=== PATIENT | female | born 1940 | race Caucasian/White ===

== ENCOUNTER 2017-01-26 23:29 | Emergency (ER) | payer MEDICARE ==
--- NOTE | 2017-01-26 23:56 | ER Document Report ---
ED Medical Screen (RME) - General Chief Complaint: Psych Problem Stated Complaint: PSYCH EVALUATION Notes: 76 year old female that comes to the ED from [facility] for chief complaint of psychiatric evaluation. Patient reportedly agitated and would not calm down, they state patient was correctly concerned about her daughter being in an accident (which EMS confirms she was). Patient denies SI or HI, states sometimes she "fears for her life" but no current complaints other than feeling "hot". She also states she is afraid she has "a baby black snake in her brain cells". PMH bipolar, EMS reports she is "not taking her meds". She has DNR paperwork. TRAVEL OUTSIDE OF THE [place] IN LAST 30 DAYS: No - Related Data Allergies/Adverse Reactions: chlorpromazine HCl [From Thorazine] Allergy (Verified 03/30/16 19:53) codeine Allergy (Verified 03/30/16 19:53) divalproex sodium [From Depakote] Allergy (Verified 03/30/16 19:53) lithium Allergy (Verified 03/30/16 19:53) Penicillins Allergy (Verified 03/30/16 19:53) prochlorperazine [From Compazine] Allergy (Verified 03/30/16 19:53) prochlorperazine edisylate [From Compazine] Allergy (Verified 03/30/16 19:53) prochlorperazine maleate [From Compazine] Allergy (Verified 03/30/16 19:53) quetiapine fumarate [From Seroquel] Allergy (Verified 03/30/16 19:53) trazodone Allergy (Verified 03/30/16 19:53) monistat Allergy (Uncoded 03/30/16 19:53) Past Medical History - Social History Chew tobacco use (# tins/day): No Frequency of alcohol use: None Drug Abuse: None - Past Medical History Cardiac Medical History: Denies: Hx Coronary Artery Disease Endocrine Medical History: Reports: Hx Hypothyroidism. Denies: Hx Diabetes Mellitus Type 1, Hx Diabetes Mellitus Type 2 Renal/ Medical History: Denies: Hx Peritoneal Dialysis GI Medical History: Reports: Hx Gastroesophageal Reflux Disease Psychiatric Medical History: Reports: Hx Bipolar Disorder, Hx Dementia - Immunizations Immunizations up to date: Yes Hx Diphtheria, Pertussis, Tetanus Vaccination: Yes Physical Exam - Vital signs Vitals: Temp Pulse Resp BP Pulse Ox 97.4 F 81 18 140/59 H 98 01/26/17 23:42 01/26/17 23:42 01/26/17 23:42 01/26/17 23:42 01/26/17 23:42 - Neurological Cognition: Other - patient is making bizarre statements, but she is fully oriented and answers all questions appropriately when asked (she focuses in well ) Orientation: AAOx4. No: Disoriented to person, Disoriented to place, Disoriented to time [employer] Coma Scale Verbal: Oriented [employer] Coma Scale Motor: Obeys Commands Speech: Normal Cranial nerves: Normal Cerebellar coordination: Normal Motor strength normal: LUE, RUE, LLE, RLE Course - Re-evaluation Re-evalutation: Patient with constant rambling, but no agitation or distress. Bizarre but actually oriented and very cooperative.No neuro deficits noted. EMS not reporting if confusion is her baseline. - Vital Signs Vital signs: Temp Pulse Resp BP Pulse Ox 97.4 F 81 18 140/59 H 98 01/26/17 23:42 01/26/17 23:42 01/26/17 23:42 01/26/17 23:42 01/26/17 23:42
--- NOTE | 2017-01-27 00:22 | ER Document Report ---
ED General - General TRAVEL OUTSIDE OF THE [place] IN LAST 30 DAYS: No <LINK JANG - Last Filed: 01/27/17 03:16> <MURTAZA CHOU - Last Filed: 01/29/17 13:42> - General Chief Complaint: Psych Problem Stated Complaint: PSYCH EVALUATION Notes: Patient is a 76-year-old female who is sent from the half-way for a psychiatric eval. She has a history of schizophrenia and bipolar. According to the note patient has not been taking her medications. Her daily medications include is a Benztropine, bupropion, and Danica-M. patient is actively having hallucinations. She tells me that there have been black snakes in her room and also she had related to have black snakes in her purse. She says they have called up inside her and she wants x-rays to determine where the snakes are. She also asked me if she could accidentally get someone's semen inside her if she was to siphon gas for one lawnmower to another. She is anxious appearing. She denies any pain. She denies any recent infections. She has no other complaints at this time. (LINK JANG) - Related Data Allergies/Adverse Reactions: chlorpromazine HCl [From Thorazine] Allergy (Verified 03/30/16 19:53) codeine Allergy (Verified 03/30/16 19:53) divalproex sodium [From Depakote] Allergy (Verified 03/30/16 19:53) lithium Allergy (Verified 03/30/16 19:53) Penicillins Allergy (Verified 03/30/16 19:53) prochlorperazine [From Compazine] Allergy (Verified 03/30/16 19:53) prochlorperazine edisylate [From Compazine] Allergy (Verified 03/30/16 19:53) prochlorperazine maleate [From Compazine] Allergy (Verified 03/30/16 19:53) quetiapine fumarate [From Seroquel] Allergy (Verified 03/30/16 19:53) trazodone Allergy (Verified 03/30/16 19:53) monistat Allergy (Uncoded 03/30/16 19:53) Home Medications: Current Home Medications Acetaminophen [Mapap] 500 mg PO Q4HP PRN 01/27/17 [History] Benztropine Mesylate [Benztropine Mesylate 0.5 mg Tablet] 0.75 mg PO BID [History] Bupropion HCl [Bupropion Xl] 150 mg PO DAILY 01/27/17 [History] Clonazepam [Klonopin] 0.25 mg PO BIDP PRN 01/27/17 [History] Loperamide HCl [Loperamide] 2 mg PO PRN PRN 01/27/17 [History] Magnesium Hydroxide [Milk of Magnesia 30 ml Udcup] 30 ml PO HSP PRN 01/27/17 [ History] Meclizine HCl [Antivert 12.5 mg Tablet] 12.5 mg PO Q8HP PRN 01/27/17 [History] Mintox 30 ml PO PRN PRN 01/27/17 [History] Multivits,Th W-Fe,Other Min [Thera-M] 1 each PO DAILY 01/27/17 [History] Neomy Sulf/Bacitra/Polymyxin B [Triple Antibiotic Ointment] 1 each TP ASDIR PRN 01/27/17 [History] Polyethylene Glycol 3350 [Miralax Powder 17 gm/Packet] 1 packet PO DAILY [History] Tramadol HCl [Ultram 50 mg Tablet] 50 mg PO HSP PRN 01/27/17 [History] Tussin Mucus-Chest 10 ml PO Q6HP PRN 01/27/17 [History] Past Medical History - Social History Smoking Status: Never Smoker Chew tobacco use (# tins/day): No Frequency of alcohol use: None Drug Abuse: None Family History: Reviewed & Not Pertinent Patient has suicidal ideation: No Patient has homicidal ideation: No - Past Medical History Cardiac Medical History: Denies: Hx Coronary Artery Disease Endocrine Medical History: Reports: Hx Hypothyroidism. Denies: Hx Diabetes Mellitus Type 1, Hx Diabetes Mellitus Type 2 Renal/ Medical History: Denies: Hx Peritoneal Dialysis GI Medical History: Reports: Hx Gastroesophageal Reflux Disease Psychiatric Medical History: Reports: Hx Bipolar Disorder, Hx Dementia - Immunizations Immunizations up to date: Yes Hx Diphtheria, Pertussis, Tetanus Vaccination: Yes <LINK JANG - Last Filed: 01/27/17 03:16> Review of Systems <LINK JANG - Last Filed: 01/27/17 03:16> <MURTAZA CHOU - Last Filed: 01/29/17 13:42> - Review of Systems Notes: My Normal Review Basic REVIEW OF SYSTEMS: CONSTITUTIONAL : Denies fever, chills, or sweats. Denies recent illness. EENT: Denies eye, ear, throat, or mouth pain or symptoms. Denies nasal or sinus congestion. CARDIOVASCULAR: Denies chest pain. RESPIRATORY: Denies cough, cold, or chest congestion. Denies shortness of breath, difficulty breathing, or wheezing. GASTROINTESTINAL: Denies abdominal pain. Denies nausea, vomiting, or diarrhea. Denies constipation. Last BM: MUSCULOSKELETAL: Denies neck or back pain or joint pain or swelling. SKIN: Denies rash or skin lesions. NEUROLOGICAL: Denies altered mental status or loss of consciousness. Denies headache. Denies weakness or paralysis or loss of use of either side. Denies problems with gait or speech. Denies sensory or motor loss. PSYCHIATRIC: Anxiety and hallucinations. ALL OTHER SYSTEMS REVIEWED AND NEGATIVE. (LINK JANG) Physical Exam <LINK JANG - Last Filed: 01/27/17 03:16> <MURTAZA CHOU - Last Filed: 01/29/17 13:42> - Vital signs Vitals: Temp Pulse Resp BP Pulse Ox 97.4 F 81 18 140/59 H 98 01/26/17 23:42 01/26/17 23:42 01/26/17 23:42 01/26/17 23:42 01/26/17 23:42 - Notes Notes: General Appearance: Well nourished, alert, cooperative, no acute distress, no obvious discomfort. Anxious appearing. Vitals: reviewed, See vital signs table. Head: no swelling or tenderness to the head Eyes: PERRL, EOMI, Conjuctiva clear Mouth: No decreasd moisture Neck: Supple, no neck tenderness, Lungs: No wheezing, No rales, No rhonci, No accessory muscle use, good air exchange bilaterally. Heart: Normal rate, Regular rythm, No murmur, no rub Abdomen: Normal BS, soft, No rigidity, No abdominal tenderness, No guarding, no rebound, no abdominal masses, no organomegaly Extremities: strength 5/5 in all extremities, good pulses in all extremities, no swelling or tenderness in the extremities, no edema. Skin: warm, dry, appropriate color, no rash Neuro: speech clear, oriented x 3, normal affect, responds appropriately to questions. (LINK JANG) Course - Laboratory Result Diagrams: 01/27/17 00:52 01/27/17 00:52 <LINK JANG - Last Filed: 01/27/17 03:16> - Laboratory Result Diagrams: 01/27/17 00:52 01/27/17 00:52 <MURTAZA CHOU - Last Filed: 01/29/17 13:42> - Re-evaluation Re-evalutation: 01/27/17 03:16 Patient start to become very agitated and continued to leave the room. She started fighting security guards. She was looking for her children because she thought she could hear their voices in the hospital. Patient cannot be reasoned with. She was given 2.5 mg of Haldol and 1 mg of Ativan IM. (LINK JANG) - Vital Signs Vital signs: Temp Pulse Resp BP Pulse Ox 97.2 F 82 14 124/70 97 01/29/17 08:00 01/29/17 08:00 01/29/17 08:00 01/29/17 08:00 01/29/17 08:00 - Laboratory Laboratory results interpreted by me: 01/27/17 01/27/17 00:52 00:52 RBC 3.57 L Hgb 11.4 L Hct 33.5 L Chloride 108 H Salicylates < 1.0 L Acetaminophen < 10 L - EKG Interpretation by Me Additional EKG results interpreted by me: 01/27/17 01:04 EKG is reviewed and interpreted by me. EKG shows normal sinus rhythm with a rate of 78 beats per minute. No ST segment elevation or depression. No ischemic T wave inversions. NM interval, QRS duration, QTC intervals are within normal range. Old EKG for comparison is from 03/25/2016. (LINK JANG) Discharge <LINK JANG - Last Filed: 01/27/17 03:16> <MURTAZA CHOU - Last Filed: 01/29/17 13:42> - Discharge Clinical Impression: Schizophrenia Qualifiers: Schizophrenia type: unspecified Qualified Code(s): F20.9 - Schizophrenia, unspecified Dementia Qualifiers: Dementia type: unspecified type Dementia behavioral disturbance: without behavioral disturbance Qualified Code(s): F03.90 - Unspecified dementia without behavioral disturbance Condition: Stable Disposition: HOME, SELF-CARE Additional Instructions: Dementia The exam shows a decrease in mental ability called dementia. Signs of dementia include a gradual loss of memory and a decreased ability to reason and solve problems. Personality changes, hostility, lack of self-care, and loss of bladder or bowel control are later signs of dementia. In these later stages, patients may become confused, lost, fearful, or agitated, even in familiar places. Alzheimer's disease is the most common type of dementia. It has no known cause or specific treatment. Other causes include alcohol and drug abuse, medication effects (especially tranquilizers and sleeping pills), strokes, head injuries, and brain tumors. Sometimes severe depression in an elderly person is mistaken for dementia, and this can be treated if recognized. A complete medical evaluation and ongoing care with a doctor is important. Most people with dementia need help or supervision with daily living. Some may be able to live independently with occasional help; others require foster care or even half-way placement. Alcohol, sedatives, and antihistamines may make the symptoms worse and should be avoided. Alzheimer's disease support groups are available in some communities and can be very valuable to the entire family. Prescription medication can ease the symptoms of Alzheimer's disease in some patients. Please arrange for medical follow-up. Return here if there is a sudden change in mental function, inability to move an arm or leg, inability to speak, fever, or any other significant change. Schizophrenia Schizophrenia is a chemical disorder that affects how the brain functions. The exact cause is unknown, but it tends to run in families. It is NOT caused by emotional trauma. Schizophrenia causes disordered thinking, including unusual beliefs and inability to "process" happenings around the patient. Patients with schizophrenia benefit greatly from medicine. These medicines are called antipsychotics. Never stop the medicine without the doctor 's approval. Counselling may help the patient deal with his disease. Schizophrenics require a very ordered environment. Stresses and sudden changes may bring out symptoms. Drugs and alcohol abuse may become problems. Contact the counsellor or crisis line if there are thoughts of suicide or of harming others, or if you become aware of unusual thoughts or beliefs FOLLOW-UP CARE: If you have been referred to a physician for follow-up care, call the physician s office for an appointment as you were instructed or within the next two days. If you experience worsening or a significant change in your symptoms, notify the physician immediately or return to the Emergency Department at any time for re-evaluation. Prescriptions: Buspirone HCl [Buspar 10 mg Tablet] 10 mg PO QHS #7 tablet Clonidine HCl [Catapres 0.1 mg Tablet] 0.1 mg PO BID #14 tablet Levetiracetam [Keppra 500 mg Tablet] 500 mg PO BID #14 tablet Referrals: KARLO COTTON MD [Primary Care Provider] - Follow up as needed
[2017-01-27 01:11] LABS: ABSOLUTE EOSINOPHILS # (AUTO) 0.4 10^3/uL (0.0-0.6); ABSOLUTE LYMPHOCYTES (AUTO) 2.6 10^3/uL (0.5-4.7); ABSOLUTE MONOCYTES (AUTO) 0.4 10^3/uL (0.1-1.4); BASOPHILS % (AUTO) 0.7 % (0-2); EOSINOPHILS % (AUTO) 5.5 % (0-6); HEMATOCRIT 33.5 % (36.0-47.0); HEMOGLOBIN 11.4 g/dL (12.0-15.5); HGB HCT DIFFERENCE 0.7; LYMPHOCYTES % (AUTO) 40.7 % (13-45); MEAN CORPUSCULAR HGB CONC 34.1 g/dL (32.0-36.0); MEAN CORPUSCULAR VOLUME 94 fl (80-97); MONOCYTES % (AUTO) 6.9 % (3-13); RED BLOOD COUNT 3.57 10^6/uL (3.72-5.28); RED CELL DISTRIBUTION WIDTH 12.4 % (11.5-14.0); SEGMENTED NEUTROPHILS % (AUTO) 46.2 % (42-78); WHITE BLOOD COUNT 6.5 10^3/uL (4.0-10.5)
[2017-01-27 01:24] LABS: ALANINE AMINOTRANSFERASE 19 U/L (9-52); ALBUMIN 3.7 g/dL (3.5-5.0); ALCOHOL < 10 mg/dL (NONE DETECTED); ALKALINE PHOSPHATASE 66 U/L (38-126); ANION GAP 13 (5-19); ASPARTATE AMINO TRANSFERASE 35 U/L (14-36); BILIRUBIN,DIRECT 0.4 mg/dL (0.0-0.4); BILIRUBIN,TOTAL 0.5 mg/dL (0.2-1.3); BLOOD UREA NITROGEN 18 mg/dL (7-20); CALCIUM 9.8 mg/dL (8.4-10.2); CARBON DIOXIDE 23 mmol/L (22-30); CHLORIDE 108 mmol/L (98-107); CREATININE RESULT 0.75 mg/dL (0.52-1.25); GLUCOSE 95 mg/dL (75-110); POTASSIUM 4.6 mmol/L (3.6-5.0); SODIUM 144.2 mmol/L (137-145); TOTAL PROTEIN 6.9 g/dL (6.3-8.2)
[2017-01-27 01:33] LABS: APPEARANCE,URINE CLEAR; BILIRUBIN,URINE NEGATIVE (NEGATIVE); GLUCOSE, URINE NEGATIVE (NEGATIVE); KETONES,URINE NEGATIVE (NEGATIVE); LEUKOCYTE ESTERASE,URINE NEGATIVE (NEGATIVE); NITRITE,URINE NEGATIVE (NEGATIVE); PROTEIN,URINE NEGATIVE (NEGATIVE); URINE SPECIFIC GRAVITY 1.006; UROBILINOGEN,URINE NEGATIVE mg/dL (<2.0)
[2017-01-27 01:49] LABS: URINE BARBITURATES SCREEN NEGATIVE; URINE METHADONE SCREEN NEGATIVE; URINE OPIATES LOW NEGATIVE; URINE PHENCYCLIDINE SCREEN NEGATIVE
[2017-01-27] MEDS ORDERED: HALOPERIDOL LACTATE INJ 5 MG/1 ML VIAL ONE (03:13)
[2017-01-27] MEDS ORDERED: LORAZEPAM INJ 2 MG/1 ML VIAL IM ONE (03:14)
[2017-01-27] MEDS ORDERED: HALOPERIDOL LACTATE INJ 5 MG/1 ML VIAL IM ONE (03:14)
[2017-01-27] MEDS ORDERED: LORAZEPAM INJ 2 MG/1 ML VIAL ONE (03:17)
--- NOTE | 2017-01-27 10:18 | EKG REPORT ---
SEVERITY:- NORMAL ECG - SINUS RHYTHM : Confirmed by: Waqar Lao MD 27-Jan-2017 10:17:34
--- NOTE | 2017-01-27 11:53 | PSYCHOLOGICAL NOTE ---
Psych Note - Psych Note Psych Note: Patient is a 76 year old female who presented last night via EMS from her prison, [facility] due to A/V H, specifically of snakes, etc. Patient is observed this morning repeatedly calling out for her daughter, and asking if her children had been discharged. Patient is reportedly diagnosed with Schizophrenia and Bipolar Disorder, as well as Dementia and has refused to take her prescribed medications. Patient additionally has numerous medication allergies, to include antipsychotics and mood stabilizers. Patient's last known doses of medications were reported as possibly the end of December. Patient this morning takes extensively about her past, even dating back to her childhood. Patient is eventually redirected to the episode yesterday, which she states EMS was called because of the snakes. She denies hallucinations. Patient states she can feel a male and female black snake on her chest, and that there is also one on the back of her brain, and in her chest and belly. Patent states she needs both her belly and head xrayed and proceeds to state she sat next to a person who was interested in obtaining seamen. Patient states she did not stop taking her medications, they were stopped by her staff at [facility]. Patient states she is concerned because of financial matters, and states she has a large inheritance she planned on building a new [facility] and relocating some of the residents from [facility] due to the poor conditions. Patient states she may or may not change her mind. Patient provides consent to speak with any family who may be located and states she has a sister in [place] and one in [place]. Patient is A and O to name and location. Mood is labile throughout her episode, but at the time of this evaluation was calm. Smiling/normal affect. Patient denies SI/HI. Patient denies A/V h; however, presents with tactile delusions. Thought processes were tangential. Conversational speech was WNL for prosody for this patient. Attention and focus were poor. Insight, judgment, and impulse control were poor. Bipolar Disorder with Psychotic Features, per history Dementia, per history
[2017-01-27] MEDS ORDERED: LEVETIRACETAM 500 MG TABLET PO SCH (12:30)
[2017-01-27] MEDS ORDERED: RISPERIDONE 0.25 MG TABLET PO SCH (15:00)
--- NOTE | 2017-01-27 15:12 | ER Document Report ---
Doctor's Note Notes: 01/27/17 15:09 Medical rounds: Chart reviewed and patient interviewed briefly. Patient appeared to be napping comfortably, awakens easily, upon questioning states she has no particular somatic complaints. Vital signs are normal. Laboratory values satisfactory. CT scan of the head has been done and is normal. Patient is alert and oriented as to person and place. She continues to be worried about "snakes in my brain cells". Psychosocial evaluation is noted and medications have been ordered per their recommendations. Patient remains medically stable.
[2017-01-27] MEDS: LEVETIRACETAM 500 MG TABLET PO SCH (17:46)
[2017-01-27] MEDS: BUSPIRONE HCL 10 MG TABLET PO SCH (22:07)
[2017-01-28] MEDS: LEVETIRACETAM 500 MG TABLET PO SCH ×2 (11:36→17:36)
[2017-01-28] MEDS ORDERED: CLONIDINE HCL 0.1 MG TABLET PO SCH (15:00)
--- NOTE | 2017-01-28 16:29 | PSYCHOLOGICAL NOTE ---
Psych Note - Psych Note Psych Note: Conducted check-in with patient who is a 76-year-old female under involuntary commitment originally petitioned by the [facility]. Patient initially was noted to have refused her medications stating she would not take the Keppra until she spoke with a doctor and also refused the Risperidone stating she has a prior history of syncopal episodes due to the medication. Patient today reports no concerns, but states she would like to see her belongings. Patient has no noted complaints at this time. Patient was noted by nursing to be talking about snakes, and also engaging in conversation will no one else was in the room. [facility] [place] states: left msg requesting return contact. Patient is alert and oriented to name and location. Mood is euthymic and cooperative, with congruent affect. Patient denies suicidal/homicidal ideations , intent, plan, means. Patient denies A/VH; delusions not noted. Thought processes were disorganized. Conversational speech was low for rate, tone, and prosody. Attention and focus were poor. Insight, judgment, impulse control were poor. Bipolar Disorder with Psychotic Features, per history Dementia, per history Patient is recommended to continue under IVC for further observation and stabilization via medication administration.
[2017-01-28] MEDS ORDERED: CLONIDINE HCL 0.1 MG TABLET ONE (16:46)
[2017-01-28] MEDS: CLONIDINE HCL 0.1 MG TABLET PO SCH (16:53)
--- NOTE | 2017-01-28 21:32 | ER Document Report ---
Doctor's Note Notes: 01/28/17 21:32 Patient seen and evaluated multiple times throughout the day had to be medicated earlier and was having episodes where she would sleep for a couple hours wake up and begin to talk about the snakes in her room again. I assessed her right before her evening medication she was in the room stable no active hallucinations resting comfortably to receive her nighttime medication. Plan further assessment and evaluation and placement.
[2017-01-28] MEDS: BUSPIRONE HCL 10 MG TABLET PO SCH (21:44)
[2017-01-28] MEDS ORDERED: LORAZEPAM INJ 2 MG/1 ML VIAL IM ONE (23:06)
[2017-01-28] MEDS ORDERED: LORAZEPAM INJ 2 MG/1 ML VIAL ONE (23:10)
[2017-01-29] MEDS: LEVETIRACETAM 500 MG TABLET PO SCH (10:05)
[2017-01-29] MEDS: CLONIDINE HCL 0.1 MG TABLET PO SCH (10:06)
--- NOTE | 2017-01-29 12:44 | PSYCHOLOGICAL NOTE ---
Psych Note - Psych Note Psych Note: Conducted check in with patient who is a 76 year old patient diagnosed with Schizophrenia and Dementia. PAtient throughout her stay has been calm and cooperative, or minimally required redirection back into her room. During her initial day she did refuse to take her medications; however, did eventually take them. Patient has had no episodes of yelling or inappropriate behavior. She has been observed engaging in self care, to include eating, requesting a comb, shower, etc. Pateint was noted in nursing notes last night to have received Ativan. Patient today is standing in her doorway and stating she will not go back to [facility] and states she has to catch her flight to get on her yacht. Patient denies suicidal/homicidal ideations. [facility], states: Evette states the patient is very smart, and has been noncompliant with her medications and would remove specific pills from her mouth, stripping naked, yelling, etc. Ms. Alas states the patient is welcomed to return to their facility and will send transportation when available. Discussed the medications administered here in the ER, to include Keppra, Buspar, and Clonidine. Patient today is A and & to name and location. Mood is a little more irritable then yesterday. Affect normal. Patient denies SI/HI, intent, plan, or means. Patient denies A/V H; delusions were noted. Thought processes were focused on going to her yacht. Conversational speech was high for prosody. Attention and focus were fair. Insight, judgment, and impulse control were poor. Bipolar Disorder with Psychotic Features, per history Dementia, per history Patient is psychiatrically cleared for discharge and recommended rescind of IVC. Patient's initial c/o black snakes on her body has resolved, and patient is no longer talking about this delusions. Patient does state she lives on a yacht and plans to fly there from the ER and not go back to [facility]. Patient is likely at her baseline and remains redirectable. Patient has been compliant with medications, self care to include eating, etc. I consulted with Dr. Sung in regards to the care and management of this patient. ED MD is in agreement with dispositions and recommendations.
--- NOTE | 2017-01-29 13:31 | ER Document Report ---
Doctor's Note Notes: 01/29/17 13:29 Rounds: Chart reviewed and patient unable to be interviewed because of her underlying mental illness. She resides at [facility], a fdc. Vital signs are all essentially normal. All laboratory studies were essentially normal as well. Patient appears to be medically stable for transfer or discharge. Patient has been evaluated by mental health and feel that she can be discharged and follow-up as an outpatient. Yesenia Scherer M.D.
[2017-01-29 14:47] VITALS: BP 104/40
== END 2017-01-29 13:40 | disposition home or self-care (01) ==
LOC: ER 23:29
DX: F20.9 Schizophrenia, unspecified (principal); F03.90 Unspecified dementia, unspecified severity, without behavioral disturbance, psychotic disturbance, mood disturbance, and anxiety; F31.9 Bipolar disorder, unspecified; Z79.899 Other long term (current) drug therapy
CPT/HCPCS: 99285; 96372; 36415; 80307 ×4; 85025; 80053; 81001; 70450; 93010; A9270 ×7; J1630; J2060 ×2

== ENCOUNTER 2017-02-16 22:04 | Emergency (ER) | payer MEDICARE ==
--- NOTE | 2017-02-16 22:32 | ER Document Report ---
ED General - General Chief Complaint: Altered Mental Status Stated Complaint: PSYCH Notes: History obtained from jail and from prior visit earlier today listed under other ). The patient is a 76-year-old female, past medical history dementia, bipolar, presents from the jail earlier today with increasing agitation refusing take her meds in the past several days. Her Ativan gel is not working to control her agitation anymore. The patient was diagnosed with a UTI and discharged back to [facility] with [facility]. The patient refused to take her antibiotics and was agitated at the jail and was sent back to the emergency room. Looking through the records earlier today, her urinalysis showed 5 WBCs and small leuk esterase. Urine culture has not grown out any organisms. She has no leukocytosis or fever. TRAVEL OUTSIDE OF THE [place] IN LAST 30 DAYS: No - Related Data Allergies/Adverse Reactions: chlorpromazine HCl [From Thorazine] Allergy (Verified 03/30/16 19:53) codeine Allergy (Verified 03/30/16 19:53) divalproex sodium [From Depakote] Allergy (Verified 03/30/16 19:53) lithium Allergy (Verified 03/30/16 19:53) Penicillins Allergy (Verified 03/30/16 19:53) prochlorperazine [From Compazine] Allergy (Verified 03/30/16 19:53) prochlorperazine edisylate [From Compazine] Allergy (Verified 03/30/16 19:53) prochlorperazine maleate [From Compazine] Allergy (Verified 03/30/16 19:53) quetiapine fumarate [From Seroquel] Allergy (Verified 03/30/16 19:53) trazodone Allergy (Verified 03/30/16 19:53) monistat Allergy (Uncoded 03/30/16 19:53) Past Medical History - General Information source: Transfer Record Cannot obtain history due to: Dementia - Social History Smoking Status: Unknown if Ever Smoked Family History: Reviewed & Not Pertinent - Past Medical History Cardiac Medical History: Denies: Hx Coronary Artery Disease Endocrine Medical History: Reports: Hx Hypothyroidism. Denies: Hx Diabetes Mellitus Type 1, Hx Diabetes Mellitus Type 2 Renal/ Medical History: Denies: Hx Peritoneal Dialysis GI Medical History: Reports: Hx Gastroesophageal Reflux Disease Psychiatric Medical History: Reports: Hx Bipolar Disorder, Hx Dementia - Immunizations Immunizations up to date: Yes Hx Diphtheria, Pertussis, Tetanus Vaccination: Yes Review of Systems - Review of Systems -: Yes ROS unobtainable due to patient's medical condition Physical Exam - Vital signs Vitals: Temp Pulse Resp BP Pulse Ox 97.8 F 83 16 121/57 L 96 02/16/17 22:12 02/16/17 22:12 02/16/17 22:12 02/16/17 22:12 02/16/17 22:12 - Notes Notes: PHYSICAL EXAMINATION: GENERAL: Outbursts, points fingers and acting like she is shooting the RN, pretending she is swimming in the stretcher, redirectable HEAD: Atraumatic, normocephalic. EYES: Pupils equal round and reactive to light, extraocular movements intact, sclera anicteric, conjunctiva are normal. ENT: nares patent, oropharynx clear without exudates. Moist mucous membranes. NECK: Normal range of motion, supple without lymphadenopathy LUNGS: Breath sounds clear to auscultation bilaterally and equal. No wheezes rales or rhonchi. HEART: Regular rate and rhythm without murmurs ABDOMEN: Soft, nontender, normoactive bowel sounds. No guarding, no rebound. No masses appreciated. EXTREMITIES: Normal range of motion, no pitting or edema. No cyanosis. NEUROLOGICAL: Cranial nerves grossly intact. Moving all 4 extremity. PSYCH: Agitated, but redirectable. Frequently speaking nonsensical words. SKIN: Warm, Dry, normal turgor, no rashes or lesions noted. Course - Re-evaluation Re-evalutation: With urinalysis completed earlier today with only 5 WBCs and small leuk esterase , UTIs most likely not causing her symptoms. Labs are all unremarkable. Patient required 5 mg Haldol while in the emergency room because she was screaming. Suspect that patient is having worsening decompensation of her bipolar and dementia. She is now refusing all medications. Patient is acting paranoid while in the ER thinking that aliens are grabbing her face. Mobile crisis in the emergency room and filling out IVC paperwork because patient has acute decompensation of her mental status, she is refusing all medications and is unable to care for self. Will have mental health evaluate patient in the morning. - Vital Signs Vital signs: Temp Pulse Resp BP Pulse Ox 97.8 F 83 16 121/57 L 96 02/16/17 22:12 02/16/17 22:12 02/16/17 22:12 02/16/17 22:12 02/16/17 22:12 Discharge - Discharge Clinical Impression: Acute psychosis Disposition: PSYCH HOSP/UNIT
[2017-02-16] MEDS ORDERED: HALOPERIDOL LACTATE INJ 5 MG/1 ML VIAL IM ONE (22:47)
[2017-02-16] MEDS ORDERED: HALOPERIDOL LACTATE INJ 5 MG/1 ML VIAL ONE (22:49)
--- NOTE | 2017-02-17 10:22 | ER Document Report ---
Doctor's Note Notes: 02/17/17 10:20 Rounds: Chart reviewed. Patient sleeping very soundly and calmly and did not awaken to my calling her name a couple of times. Vital signs are all normal. Patient had 2 sets of records under 2 different names in our medical record system she was here earlier in the evening under her other last name. Labs are essentially normal. No evidence of a UTI. Patient appears to be medically stable for transfer or discharge. Yesenia Scherer M.D. 02/17/17 15:51 Nurse reports the patient is becoming agitated and difficult to control and she is causing other patients to become upset. We'll give her 5 mg of Haldol by mouth.
[2017-02-17] MEDS ORDERED: LEVETIRACETAM 500 MG TABLET PO SCH (11:00)
[2017-02-17] MEDS ORDERED: HALOPERIDOL 5 MG TABLET PO ONE (15:50)
[2017-02-17] MEDS: BUSPIRONE HCL 10 MG TABLET PO SCH (23:15)
[2017-02-17] MEDS: CLONIDINE HCL 0.1 MG TABLET PO SCH (23:15)
--- NOTE | 2017-02-18 05:56 | ER Document Report ---
Doctor's Note Notes: 02/18/17 05:55 Patient's has been difficult to keep in her room. She's been easily agitated. Patient just recently walked out of her naked and bent over and asked the staff and other patients to "kiss my ass". It is difficult to reason with the patient this time. We will restrain her to keep her in her room in bed and keep her from agitating the other psychiatric patients around her. Dictation of this chart was performed using voice recognition software; therefore, there may be some unintended grammatical errors.
--- NOTE | 2017-02-18 07:39 | PSYCHOLOGICAL NOTE ---
Psych Note - Psych Note Psych Note: History obtained from long term and from prior visit earlier today listed under other ). The patient is a 76-year-old female, past medical history dementia, bipolar, presents from the long term earlier today with increasing agitation refusing take her meds in the past several days. Her Ativan gel is not working to control her agitation anymore. The patient was diagnosed with a UTI and discharged back to [facility] with [facility]. The patient refused to take her antibiotics and was agitated at the long term and was sent back to the emergency room. Looking through the records earlier today, her urinalysis showed 5 WBCs and small leuk esterase. Urine culture has not grown out any organisms. Clinician notified that patient was refusing her medication. Clinician spoke with patient and noted patient was speaking about [place] Jeffrey and Onassis. Clinician started to ask questions around the Kennedys to engage patient. Patient made eye contact with clinician and started to discuss the Kennedys and subsequent assassination and remarriage of [place]. Clinician notes the patient appears to only know the one timeframe and states she was unaware of Bird Murphy's and only remembers him as a child "calling him JJ." Patient was asked if she had a favorite outfit of [place] and she stated she always dressed "beautiful." Patient then started to discuss her favorite dress she owned to a Furious democrat she was invited to on a yacht. SHe continued to discuss the events surrounding this evening to include people's complements on her dress. Patient was asked if she would take her medication during freely engaging with clinician for the attending nurse. Patient requested the name of the physician that prescribed it and the clinician 's name. Once provided this information the patient was willing to take the medication but requested it to be broken in half because she has difficulty swallowing. Patient is alert and orientated to person. Patient appears to be focused on a specific timeframe in her life. Patient's cognitive functioning appears to be impaired. Thought process is over all linear with minor flight of thought. Thought content is currently centered around one specific timeframe. Eye contact was well maintained. Unspecified Bipolar per history provided by long term Dementia per history provided by long term Impression/plan: Patient is recommended for mental health hold for further observation. Patient is reported to have dementia and and diagnosis of bipolar. Patient lives in a long term and has been refusing her medications. At this time, it is unclear if the patient is behavioral or decompensation from her diagnosis without medications. Dr. Sung was consulted on the care and management of this patient; attending physician is in agreement with recommendations and disposition.
[2017-02-18] MEDS: RISPERIDONE 0.25 MG TABLET PO SCH ×2 (09:15→18:45)
--- NOTE | 2017-02-18 10:22 | ER Document Report ---
Doctor's Note Notes: 02/18/17 10:20 Rounds: Chart reviewed. Patient is up and standing at the end of her bed. She has been difficult to control during the past 24 hours. She's been wandering in the hallways. Interfering with other patients. Has taken her clothes off and told the staff to "kiss my ass". Haldol has not been of much benefit for this condition. Patient was restrained during the night at one point. Not restrained now. Vital signs are all normal. No new lab studies to review. Patient appears medically stable for transfer or discharge. Yesenia Scherer M.D. 02/18/17 13:23 Patient still roaming the hallways and difficult to control. She and won't take her Keppra medications. I've ordered soft restraints.
[2017-02-18] MEDS ORDERED: OLANZAPINE INJ/PF 10 MG SDV IM PRN (15:02)
[2017-02-18] MEDS ORDERED: BENZTROPINE MESYLATE INJ 2 MG/2 ML AMPULE IM SCH (15:15)
[2017-02-18] MEDS: BUSPIRONE HCL 10 MG TABLET PO SCH (23:45)
[2017-02-18] MEDS: CLONIDINE HCL 0.1 MG TABLET PO SCH (23:45)
[2017-02-19] MEDS: RISPERIDONE 0.25 MG TABLET PO SCH ×2 (07:59→18:00)
[2017-02-19] MEDS ORDERED: BENZTROPINE MESYLATE 1 MG TABLET PO SCH (10:00)
[2017-02-19] MEDS: OLANZAPINE 5 MG TAB.RAPDIS PO SCH ×2 (10:15→17:59)
--- NOTE | 2017-02-19 13:25 | PSYCHOLOGICAL NOTE ---
Psych Note - Psych Note Psych Note: Conducted check in with patient who is a 76 year old female who is under IVC at [facility] ED. Patient was noted overnight to require pharmacological intervention to assist her in remaining calm, as well as soft restraints after she pulled her pants down, bent over and instructed staff and other patient's to "kiss my a. " Patient has also been refusing her Keppra, although intermittently taking other medications PO, such as her Buspar and Risperdone. Patient was observed wandering in and out of her room and was difficult to redirect to remain in her and was subsequently put back in soft restraints. Patient's medications were switched to IM to assist in stabilization of behaviors and symptoms. Patient will be reevaluated again in the morning for further disposition and recommendations. Patient is alert and orientated to person. Mood is labile, with easily irritated but other times pleasant. Patient denied suicidal/homicidal ideations , intent, plan, or means. Patient denies A/V H. Thought processes were some flight of ideas. Conversational speech was at times difficult to understand. Attention and focus were poor. Insight, judgment, and impulse control were poor. Unspecified Bipolar per history provided by assisted Dementia per history provided by residential provider Impression/plan: Patient is recommended for mental health hold for further observation. Patient is reported to have dementia and and diagnosis of bipolar. Patient is not yet accepting medications PO, which is critical for her to successfully discharge back to her residential placement as PO medications are their only option in house. I consulted with Dr. Sung in regards to the care and management of this patient. ED MD is in agreement with disposition and recommendations.
--- NOTE | 2017-02-19 14:39 | PSYCHOLOGICAL NOTE ---
Psych Note - Psych Note Psych Note: Conducted check-in with patient who is a 76-year-old female at [facility] ED. Patient resides at a custodial, [facility], and was sent to the emergency room twice in 24 hours. Initially patient presented and was diagnosed with a urinary tract infection. Patient was discharged back to the [facility]; however, patient returned due to behavioral concerns and refusing medications. Patient this morning was switched to by mouth medications, and accepted these medications without incident. Patient today engaged in conversation. She did speak in tangents, to include discussing her residential facility in [place]. Patient did provide the name and phone number of a someone who she states is her granddaughter and makes the decisions in regards to where she lives. Note, patient did not provide the same name more than one time, and the number provided was not a working number. Patient's next of kin, Carlene states she resigned her POA because she is planning on moving out of state. She states that her mother may be POA, but is unsure of a current number for her mother. Will return contact. [facility], states: Discussed with staff how they would identify if she is "normal" which included some behavioral acting out, but not talking about SI. Advised staff patient has denied SI and made no mention of that here in the Department. Advised staff that patient was pending discharge. Staff stated they were under the impression the patient's PA "was taking care of all this" which she then clarified as seeking an alternative placement. [facility] returned contact and stated there was not transportation and their concern was that there is no way to fill prescriptions tonight. Requested that the patient remain in the Department until tomorrow. Returned contact and [facility] Staff stated they hope she is stabilized because if she "acts out" she will be sent right back. Discussed with staff that the presenting crisis, to include psychosis, has been addressed. Outpatient follow up is indicated at this time. Patient is alert and orientated to person. Mood is euthymic and redirectable. Patient denied suicidal/homicidal ideations, intent, plan, or means. Patient denies A/V H. Thought processes were some flight of ideas. Conversational speech was at times difficult to understand. Attention and focus were poor. Insight, judgment, and impulse control were poor. Unspecified Bipolar per history provided by [facility] Dementia per history provided by residential provider Thank you patient is psychiatrically cleared and recommended for discharge. Patient's presenting symptoms and complaints, to include psychosis have resolved. Patient has been compliant throughout today with by mouth medications and has been more easily redirected when needed. Patient is likely at her baseline daily functioning, which should be noted may be more symptomatic then in the past as patient's diseases progress. I have consulted with Dr. Sung in regards to the care and management of this patient. KUSUM Deleon is in agreement with disposition and recommendations.
--- NOTE | 2017-02-19 17:50 | ER Document Report ---
ED Psych Disorder / Suicide - General Information source: Patient, Relative, [facility] Records, Outside Facility Records Cannot obtain history due to: Dementia TRAVEL OUTSIDE OF THE [place] IN LAST 30 DAYS: No - HPI Patient complains to provider of: Aggression - upon arrival 02/16, Hallucinating - upon arrival Onset: Just prior to arrival Onset was: Sudden Suicide Risk Factors: Age >65, Bipolar, Lack of social support Situational problems related to: Other - poor familial support Normal mood: Yes Associated symptoms: Normal affect - today, Normal mood - today, Flight of ideas - minor, Labile Similar symptoms previously: Yes Recently seen / treated by doctor: Yes - 02/16 - General Chief Complaint: Altered Mental Status Stated Complaint: PSYCH - HPI Notes: Conducted check-in with patient who is a 76-year-old female at [facility] ED. Patient resides at a care home, [facility], and was sent to the emergency room twice in 24 hours. Initially patient presented and was diagnosed with a urinary tract infection. Patient was discharged back to the [facility]; however, patient returned due to behavioral concerns and refusing medications. Patient this morning was switched to by mouth medications, and accepted these medications without incident. Patient today engaged in conversation. She did speak in tangents, to include discussing her residential facility in [place]. Patient did provide the name and phone number of a someone who she states is her granddaughter and makes the decisions in regards to where she lives. Note, patient did not provide the same name more than one time, and the number provided was not a working number. Patient's next of kin, Carlene states she resigned her POA because she is planning on moving out of state. She states that her mother may be POA, but is unsure of a current number for her mother. Will return contact. [facility], states: Discussed with staff how they would identify if she is "normal" which included some behavioral acting out, but not talking about SI. Advised staff patient has denied SI and made no mention of that here in the Department. Advised staff that patient was pending discharge. Staff stated they were under the impression the patient's PA "was taking care of all this" which she then clarified as seeking an alternative placement. [facility] returned contact and stated there was not transportation and their concern was that there is no way to fill prescriptions tonight. Requested that the patient remain in the Department until tomorrow. Returned contact and advised patient would be discharged via [facility]. Staff stated they hope she is stabilized because if she "acts out" she will be sent right back. Discussed with staff that the presenting crisis, to include psychosis, has been addressed. Outpatient follow up is indicated at this time. Patient is alert and orientated to person. Mood is euthymic and redirectable. Patient denied suicidal/homicidal ideations, intent, plan, or means. Patient denies A/V H. Thought processes were some flight of ideas. Conversational speech was at times difficult to understand. Attention and focus were poor. Insight, judgment, and impulse control were poor. Unspecified Bipolar per history provided by snf Dementia per history provided by residential provider Thank you patient is psychiatrically cleared and recommended for discharge. Patient's presenting symptoms and complaints, to include psychosis have resolved. Patient has been compliant throughout today with by mouth medications and has been more easily redirected when needed. Patient is likely at her baseline daily functioning, which should be noted may be more symptomatic then in the past as patient's diseases progress. Please also note, if the residential care home no longer feels they can manage the patient, they are responsible for seeking alternative level of care. I have consulted with Dr. Sung in regards to the care and management of this patient. ED Adrienne is in agreement with disposition and recommendations. (ALFONSO FIGUEROA) - Related Data Allergies/Adverse Reactions: chlorpromazine HCl [From Thorazine] Allergy (Verified 03/30/16 19:53) codeine Allergy (Verified 03/30/16 19:53) divalproex sodium [From Depakote] Allergy (Verified 03/30/16 19:53) lithium Allergy (Verified 03/30/16 19:53) Penicillins Allergy (Verified 03/30/16 19:53) prochlorperazine [From Compazine] Allergy (Verified 03/30/16 19:53) prochlorperazine edisylate [From Compazine] Allergy (Verified 03/30/16 19:53) prochlorperazine maleate [From Compazine] Allergy (Verified 03/30/16 19:53) quetiapine fumarate [From Seroquel] Allergy (Verified 03/30/16 19:53) trazodone Allergy (Verified 03/30/16 19:53) monistat Allergy (Uncoded 03/30/16 19:53) Home Medications: Current Home Medications Buspirone HCl [Buspar 10 mg Tablet] 10 mg PO QHS 02/17/17 [History] Clonidine HCl [Catapres 0.1 mg Tablet] 0.1 mg PO BID@0800,1500 02/17/17 [History ] Ergocalciferol (Vitamin D2) [Vitamin D2] 50,000 unit PO SA 02/17/17 [History] Levetiracetam [Keppra 500 mg Tablet] 500 mg PO BID 02/17/17 [History] Lorazepam Gel 1mg/Ml 0.5 ml TOP Q6HP PRN 02/17/17 [History] Sulfamethoxazole/Trimethoprim [Bactrim Ds Tablet] 1 tab PO BID 02/17/17 [History ] Past Medical History - General Information source: Patient, Relative, Transfer Record, [facility] Records, Outside Facility Records Cannot obtain history due to: Dementia - Social History Smoking Status: Unknown if Ever Smoked Lives with: Other - residential program Family History: Reviewed & Not Pertinent Patient has suicidal ideation: No Patient has homicidal ideation: No - Past Medical History Cardiac Medical History: Denies: Hx Coronary Artery Disease Endocrine Medical History: Reports: Hx Hypothyroidism. Denies: Hx Diabetes Mellitus Type 1, Hx Diabetes Mellitus Type 2 Renal/ Medical History: Denies: Hx Peritoneal Dialysis GI Medical History: Reports: Hx Gastroesophageal Reflux Disease Psychiatric Medical History: Reports: Hx Bipolar Disorder, Hx Dementia - Immunizations Immunizations up to date: Yes Hx Diphtheria, Pertussis, Tetanus Vaccination: Yes Discharge - Discharge Clinical Impression: Acute psychosis, Bipolar affective disorder, Bipolar 1 disorder with moderate keith Dementia Qualifiers: Dementia type: unspecified type Dementia behavioral disturbance: with behavioral disturbance Qualified Code(s): F03.91 - Unspecified dementia with behavioral disturbance Condition: Stable Disposition: HOME-SNF (ED ONLY) Instructions: Dementia ([facility]), Hallucinations ([facility]), Bipolar Disorder ([facility]) Additional Instructions: Please returned here residential setting and follow-up with her psychiatric provider within 3-5 days. Please take her medications as prescribed. Please discuss with year residential provider if you feel you're needs would be better met in another residential setting. Please return to the ER if your symptoms worsen. Bipolar Disorder Bipolar disorder is also called manic-depressive disorder. Depression alternates with brain hyperactivity called keith. Each phase lasts from several days to a few weeks. We don't know exactly what causes bipolar disorder , but it's treatable. During the "manic phase," you may feel elated and energetic. You may have racing thoughts, rapid speech, increased activity, and grandiose ideas. During this time, you may not realize how poor your judgement is. Inappropriate spending, drug abuse, excessive alcohol use, marriage problems, and irresponsible sexual behavior are common during the manic phase. During the "depressive phase," you might feel depressed, guilty, worthless , fatigued, and unable to concentrate. You might have thoughts of suicide. Good treatments are available for bipolar disorder. Coleta is a classic drug for bipolar disorder, and is still often useful. If the manic phase is very mild, an antidepressant alone can be prescribed. If the manic phase is very severe, an antipsychotic medicine (such as Haldol) may be needed. The treatment must be matched to your symptoms, so it's important to work closely with your psychiatric care provider. Contact your physician, the hospital emergency center, crisis line, or your counsellor if you are losing control or having self-destructive thoughts. Dementia The exam shows a decrease in mental ability called dementia. Signs of dementia include a gradual loss of memory and a decreased ability to reason and solve problems. Personality changes, hostility, lack of self-care, and loss of bladder or bowel control are later signs of dementia. In these later stages, patients may become confused, lost, fearful, or agitated, even in familiar places. Alzheimer's disease is the most common type of dementia. It has no known cause or specific treatment. Other causes include alcohol and drug abuse, medication effects (especially tranquilizers and sleeping pills), strokes, head injuries, and brain tumors. Sometimes severe depression in an elderly person is mistaken for dementia, and this can be treated if recognized. A complete medical evaluation and ongoing care with a doctor is important. Most people with dementia need help or supervision with daily living. Some may be able to live independently with occasional help; others require foster care or even snf placement. Alcohol, sedatives, and antihistamines may make the symptoms worse and should be avoided. Alzheimer's disease support groups are available in some communities and can be very valuable to the entire family. Prescription medication can ease the symptoms of Alzheimer's disease in some patients. Please arrange for medical follow-up. Return here if there is a sudden change in mental function, inability to move an arm or leg, inability to speak, fever, or any other significant change. Prescriptions: Benztropine Mesylate [Cogentin 1 mg Tablet] 1 tab PO DAILY #7 tab Olanzapine [Zyprexa 2.5 Mg Tablet] 2.5 mg PO BID #14 tablet Referrals: KARLO COTTON MD [Primary Care Provider] - Follow up in 3-5 days
[2017-02-19] MEDS: BUSPIRONE HCL 10 MG TABLET PO SCH (17:59)
[2017-02-19 18:14] VITALS: BP 117/54
== END 2017-02-19 18:30 ==
LOC: ER 22:04
DX: F23 Brief psychotic disorder (principal); F31.11 Bipolar disorder, current episode manic without psychotic features, mild; F03.91 Unspecified dementia, unspecified severity, with behavioral disturbance; E03.9 Hypothyroidism, unspecified; K21.9 Gastro-esophageal reflux disease without esophagitis; Z88.6 Allergy status to analgesic agent; Z88.0 Allergy status to penicillin; Z78.1 Physical restraint status
CPT/HCPCS: 99285; 96372; 36415; 87086; 82553; 82550; 85025; 87088; 80053; 81001; 84484; A9270 ×11; J0515; J3490

== ENCOUNTER 2017-03-02 14:58 | Emergency (ER) | payer MEDICARE ==
[2017-03-02 17:05] LABS: ABSOLUTE EOSINOPHILS # (AUTO) 0.3 10^3/uL (0.0-0.6); ABSOLUTE LYMPHOCYTES (AUTO) 1.9 10^3/uL (0.5-4.7); ABSOLUTE MONOCYTES (AUTO) 0.3 10^3/uL (0.1-1.4); ABSOLUTE NEUT (AUTO) 2.2 10^3/uL (1.7-8.2); BASOPHILS % (AUTO) 0.9 % (0-2); EOSINOPHILS % (AUTO) 5.5 % (0-6); HEMATOCRIT 33.6 % (36.0-47.0); HEMOGLOBIN 11.4 g/dL (12.0-15.5); HGB HCT DIFFERENCE 0.6; MEAN CORPUSCULAR HGB CONC 33.8 g/dL (32.0-36.0); MEAN CORPUSCULAR VOLUME 95 fl (80-97); MONOCYTES % (AUTO) 6.6 % (3-13); RED BLOOD COUNT 3.56 10^6/uL (3.72-5.28); RED CELL DISTRIBUTION WIDTH 12.9 % (11.5-14.0); WHITE BLOOD COUNT 4.7 10^3/uL (4.0-10.5)
[2017-03-02 17:38] LABS: ALANINE AMINOTRANSFERASE 26 U/L (9-52); ALBUMIN 3.4 g/dL (3.5-5.0); ALKALINE PHOSPHATASE 74 U/L (38-126); ANION GAP 8 (5-19); ASPARTATE AMINO TRANSFERASE 25 U/L (14-36); BILIRUBIN,DIRECT 0.1 mg/dL (0.0-0.4); BILIRUBIN,TOTAL 0.2 mg/dL (0.2-1.3); BLOOD UREA NITROGEN 17 mg/dL (7-20); CALCIUM 9.7 mg/dL (8.4-10.2); CARBON DIOXIDE 31 mmol/L (22-30); CHLORIDE 107 mmol/L (98-107); CREATININE RESULT 0.89 mg/dL (0.52-1.25); GLUCOSE 96 mg/dL (75-110); TOTAL PROTEIN 6.3 g/dL (6.3-8.2)
[2017-03-02 17:44] LABS: POTASSIUM 4.7 mmol/L (3.6-5.0)
[2017-03-02 18:23] LABS: APPEARANCE,URINE CLEAR; BILIRUBIN,URINE NEGATIVE (NEGATIVE); GLUCOSE, URINE NEGATIVE (NEGATIVE); KETONES,URINE NEGATIVE (NEGATIVE); LEUKOCYTE ESTERASE,URINE NEGATIVE (NEGATIVE); NITRITE,URINE NEGATIVE (NEGATIVE); PROTEIN,URINE NEGATIVE (NEGATIVE); URINE SPECIFIC GRAVITY 1.004; UROBILINOGEN,URINE NEGATIVE mg/dL (<2.0)
--- NOTE | 2017-03-02 19:21 | ER Document Report ---
ED General - General Chief Complaint: Altered Mental Status Stated Complaint: ALTERED MENTAL STATUS Notes: Patient was sent for evaluation for a change in her behavior at the shelter with dementia [facility] at which lives. The home reports that the patient was streaking, which is unusual for her. Patient says she was only wearing a short skirt. Patient is intermittently confused, but does answer some questions accurately. She complains of pain in her left second toe which she says is a sebaceous cyst that needs to be removed and that it will smell up the place. Examining of the toe reveals what is likely a small abrasion but nothing that is fluctuant needing incising and draining. It does appear to be very tender to touch. During my interview the patient, she is sucking on a straw as if smoking it. When asked where she lives, she knows that it's [facility]. Later in conversation, the patient offers that she was formerly to the [employer] [place] [facility], but she him in the s, but was never able to find anyone to "fill his shoes". We contacted the [facility] to ask them why the patient was sent here and they said that her behavior was different than usual and that's often associated with a UTI in this patient. Patient denies any UTI symptoms. She's not been sick in any way such as with a fever, vomiting, diarrhea, etc. Denies shortness of breath. Denies chest pain. During her time here, for several hours, patient was in direct view of the staff in hallway 3 slot and she behaved completely normally. At times, she would sing [place] [employer] and at other times [employer]. TRAVEL OUTSIDE OF THE [place] IN LAST 30 DAYS: No - Related Data Allergies/Adverse Reactions: chlorpromazine HCl [From Thorazine] Allergy (Verified 03/30/16 19:53) codeine Allergy (Verified 03/30/16 19:53) divalproex sodium [From Depakote] Allergy (Verified 03/30/16 19:53) lithium Allergy (Verified 03/30/16 19:53) Penicillins Allergy (Verified 03/30/16 19:53) prochlorperazine [From Compazine] Allergy (Verified 03/30/16 19:53) prochlorperazine edisylate [From Compazine] Allergy (Verified 03/30/16 19:53) prochlorperazine maleate [From Compazine] Allergy (Verified 03/30/16 19:53) quetiapine fumarate [From Seroquel] Allergy (Verified 03/30/16 19:53) trazodone Allergy (Verified 03/30/16 19:53) monistat Allergy (Uncoded 03/30/16 19:53) Past Medical History - Social History Smoking Status: Unknown if Ever Smoked Cigarette use (# per day): No Family History: Reviewed & Not Pertinent - Past Medical History Cardiac Medical History: Denies: Hx Coronary Artery Disease Endocrine Medical History: Reports: Hx Hypothyroidism. Denies: Hx Diabetes Mellitus Type 1, Hx Diabetes Mellitus Type 2 GI Medical History: Reports: Hx Gastroesophageal Reflux Disease Psychiatric Medical History: Reports: Hx Bipolar Disorder, Hx Dementia - Immunizations Immunizations up to date: Yes Hx Diphtheria, Pertussis, Tetanus Vaccination: Yes Review of Systems - Review of Systems Notes: REVIEW OF SYSTEMS: CONSTITUTIONAL : Denies fever. CARDIOVASCULAR: Denies chest pain. RESPIRATORY: Denies cough, chest congestion, or shortness of breath. GASTROINTESTINAL: Denies abdominal pain or nausea, vomiting, or diarrhea. GENITOURINARY: Denies difficulty or painful urinating, urinary frequency, blood in urine. NEUROLOGICAL: Diagnosed with dementia. ALL OTHER SYSTEMS REVIEWED AND NEGATIVE. -: Yes ROS unobtainable due to patient's medical condition - I don't think she can be trusted to give a reliable review of systems. Physical Exam - Vital signs Vitals: Temp Pulse Resp BP Pulse Ox 97.4 F 69 18 109/49 L 93 03/02/17 15:15 03/02/17 15:15 03/02/17 15:15 03/02/17 15:15 03/02/17 15:15 - Notes Notes: PHYSICAL EXAMINATION: GENERAL: Well-appearing, in no acute distress. Vital signs are all essentially normal. Patient is very pleasant throughout entire stay in the department. Very entertaining, singing songs. 8 very vigorously from a food tray obtained for her. HEAD: Atraumatic, normocephalic. NECK: Normal range of motion, supple. LUNGS: Breath sounds clear and equal bilaterally. HEART: Regular rate and rhythm without murmurs. ABDOMEN: Soft, nontender. No guarding or rebound. BACK: No tenderness throughout entire back. EXTREMITIES: Normal range of motion without pain. Patient's second toe on the left foot has an abrasion dorsally and proximally. There is no evidence of infection to my examination and certainly no fluctuance or anything to try to ind. NEUROLOGICAL: Patient can walk without assistance, but not distances. Normal speech. Normal sensory, motor, and reflex exams. Awake, alert. PSYCH: Normal mood, normal affect. SKIN: Warm, dry, no rashes. Course - Vital Signs Vital signs: Temp Pulse Resp BP Pulse Ox 98.4 F 66 20 114/62 96 03/02/17 19:00 03/02/17 19:00 03/02/17 19:00 03/02/17 19:00 03/02/17 19:00 - Laboratory Result Diagrams: 03/02/17 16:30 03/02/17 16:30 Laboratory results interpreted by me: 03/02/17 03/02/17 16:30 16:30 RBC 3.56 L Hgb 11.4 L Hct 33.6 L Sodium 146.0 H Carbon Dioxide 31 H Albumin 3.4 L Discharge - Discharge Clinical Impression: Dementia Qualifiers: Dementia type: unspecified type Dementia behavioral disturbance: without behavioral disturbance Qualified Code(s): F03.90 - Unspecified dementia without behavioral disturbance Condition: Stable Disposition: HOME, SELF-CARE Additional Instructions: Dementia The exam shows a decrease in mental ability called dementia. Signs of dementia include a gradual loss of memory and a decreased ability to reason and solve problems. Personality changes, hostility, lack of self-care, and loss of bladder or bowel control are later signs of dementia. In these later stages, patients may become confused, lost, fearful, or agitated, even in familiar places. Alzheimer's disease is the most common type of dementia. It has no known cause or specific treatment. Other causes include alcohol and drug abuse, medication effects (especially tranquilizers and sleeping pills), strokes, head injuries, and brain tumors. Sometimes severe depression in an elderly person is mistaken for dementia, and this can be treated if recognized. A complete medical evaluation and ongoing care with a doctor is important. Most people with dementia need help or supervision with daily living. Some may be able to live independently with occasional help; others require foster care or even prison placement. Alcohol, sedatives, and antihistamines may make the symptoms worse and should be avoided. Alzheimer's disease support groups are available in some communities and can be very valuable to the entire family. Prescription medication can ease the symptoms of Alzheimer's disease in some patients. Please arrange for medical follow-up. Return here if there is a sudden change in mental function, inability to move an arm or leg, inability to speak, fever, or any other significant change. NORMAL EXAM AND WORKUP: At this time, except for some elements of your dementia, your examination and workup show no significant abnormality. No significant abnormal physical findings were noted. All laboratory, EKG, and imaging (x-ray, CT scans, ultrasound) studies that were ordered show no significant abnormality. Although your examination and all studies that were ordered showed no significant abnormal finding, there are no examinations and no studies that are 100% accurate. There is always the possibility that some abnormality could exist and not be detected with physical examination or within the limits and capabilities of laboratory and other studies. You should return or follow up as you were instructed on your visit today for further evaluation if your symptoms do not resolve. FOLLOW-UP CARE: If you have been referred to a physician for follow-up care, call the physician s office for an appointment as you were instructed or within the next two days. If you experience worsening or a significant change in your symptoms, notify the physician immediately or return to the Emergency Department at any time for re-evaluation. Follow-up with your primary care provider. Return if any new or worsening symptoms. Referrals: KARLO COTTON MD [Primary Care Provider] - Follow up as needed
[2017-03-02 19:27] VITALS: BP 114/62
== END 2017-03-02 19:27 | disposition home or self-care (01) ==
LOC: ER 14:58
DX: F03.90 Unspecified dementia, unspecified severity, without behavioral disturbance, psychotic disturbance, mood disturbance, and anxiety (principal); S90.415A Abrasion, left lesser toe(s), initial encounter; X58.XXXA Exposure to other specified factors, initial encounter; Z87.440 Personal history of urinary (tract) infections; Z88.8 Allergy status to other drugs, medicaments and biological substances; Z88.5 Allergy status to narcotic agent; Z88.0 Allergy status to penicillin; Z88.3 Allergy status to other anti-infective agents
CPT/HCPCS: 36415; 51701; 80053; 81001; 85025; 87086; 99285

== ENCOUNTER 2017-03-09 21:45 | Emergency (ER) | payer MEDICARE ==
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
[2017-03-09 23:33] LABS: APPEARANCE,URINE CLEAR; BILIRUBIN,URINE NEGATIVE (NEGATIVE); GLUCOSE, URINE NEGATIVE (NEGATIVE); KETONES,URINE NEGATIVE (NEGATIVE); LEUKOCYTE ESTERASE,URINE NEGATIVE (NEGATIVE); NITRITE,URINE NEGATIVE (NEGATIVE); PROTEIN,URINE NEGATIVE (NEGATIVE); URINE SPECIFIC GRAVITY 1.004; UROBILINOGEN,URINE NEGATIVE mg/dL (<2.0)
[2017-03-09 23:46] LABS: URINE BARBITURATES SCREEN NEGATIVE; URINE METHADONE SCREEN NEGATIVE; URINE OPIATES LOW NEGATIVE; URINE PHENCYCLIDINE SCREEN NEGATIVE
[2017-03-10 01:01] LABS: ABSOLUTE EOSINOPHILS # (AUTO) 0.2 10^3/uL (0.0-0.6); ABSOLUTE LYMPHOCYTES (AUTO) 1.6 10^3/uL (0.5-4.7); ABSOLUTE MONOCYTES (AUTO) 0.3 10^3/uL (0.1-1.4); ABSOLUTE NEUT (AUTO) 2.2 10^3/uL (1.7-8.2); BASOPHILS % (AUTO) 0.8 % (0-2); EOSINOPHILS % (AUTO) 5.4 % (0-6); HEMATOCRIT 31.8 % (36.0-47.0); HEMOGLOBIN 10.7 g/dL (12.0-15.5); HGB HCT DIFFERENCE 0.3; LYMPHOCYTES % (AUTO) 36.5 % (13-45); MEAN CORPUSCULAR HGB CONC 33.7 g/dL (32.0-36.0); MEAN CORPUSCULAR VOLUME 95 fl (80-97); MONOCYTES % (AUTO) 7.3 % (3-13); RED BLOOD COUNT 3.35 10^6/uL (3.72-5.28); RED CELL DISTRIBUTION WIDTH 12.8 % (11.5-14.0); WHITE BLOOD COUNT 4.4 10^3/uL (4.0-10.5)
[2017-03-10 01:17] LABS: ALANINE AMINOTRANSFERASE 24 U/L (9-52); ALBUMIN 3.2 g/dL (3.5-5.0); ALKALINE PHOSPHATASE 71 U/L (38-126); ANION GAP 11 (5-19); ASPARTATE AMINO TRANSFERASE 25 U/L (14-36); BILIRUBIN,DIRECT 0.3 mg/dL (0.0-0.4); BILIRUBIN,TOTAL 0.3 mg/dL (0.2-1.3); BLOOD UREA NITROGEN 26 mg/dL (7-20); CALCIUM 9.4 mg/dL (8.4-10.2); CARBON DIOXIDE 26 mmol/L (22-30); CHLORIDE 112 mmol/L (98-107); CREATININE RESULT 0.92 mg/dL (0.52-1.25); GLUCOSE 95 mg/dL (75-110); POTASSIUM 4.5 mmol/L (3.6-5.0); SODIUM 148.7 mmol/L (137-145); TOTAL PROTEIN 6.2 g/dL (6.3-8.2)
[2017-03-10 01:33] LABS: ALCOHOL < 10 mg/dL (NONE DETECTED); VALPROIC ACID < 10.0 ug/mL (50.0-120.0)
[2017-03-10] MEDS ORDERED: LORAZEPAM INJ 2 MG/1 ML VIAL IM ONE (04:32)
[2017-03-10] MEDS ORDERED: LORAZEPAM INJ 2 MG/1 ML VIAL ONE (04:33)
--- NOTE | 2017-03-10 07:49 | EKG REPORT ---
SEVERITY:- BORDERLINE ECG - SINUS RHYTHM BORDERLINE R WAVE PROGRESSION, ANTERIOR LEADS : Confirmed by: Waqar Lao MD 10-Mar-2017 07:49:21
[2017-03-10] MEDS ORDERED: BENZTROPINE MESYLATE 1 MG TABLET PO SCH (10:00)
--- NOTE | 2017-03-10 10:41 | ER Document Report ---
Doctor's Note Notes: 03/10/17 10:41 As the rounding physician this AM, I assessed the patient's labs, vitals, and records. No concerning findings this morning. Patient denies any acute complaints. Patient is cleared for disposition by psychiatry
[2017-03-10] MEDS ORDERED: BENZTROPINE MESYLATE 1 MG TABLET PO ONE (11:30)
[2017-03-10] MEDS ORDERED: BUSPIRONE HCL 10 MG TABLET PO ONE (11:30)
[2017-03-10] MEDS ORDERED: LEVETIRACETAM 500 MG TABLET PO ONE (11:30)
[2017-03-10] MEDS ORDERED: POLYETHYLENE GLYCOL 3350 POWDER 17 GM/1 PACKET PO ONE (14:16)
[2017-03-10] MEDS: CLONIDINE HCL 0.1 MG TABLET PO SCH (15:34)
[2017-03-10] MEDS: BUSPIRONE HCL 10 MG TABLET PO SCH (17:28)
[2017-03-10] MEDS: LEVETIRACETAM 500 MG TABLET PO SCH (17:28)
[2017-03-10] MEDS: OLANZAPINE 5 MG TABLET PO PRN (21:23)
[2017-03-11] MEDS ORDERED: LORAZEPAM INJ 2 MG/1 ML VIAL IM ONE (00:30)
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
[2017-03-11] MEDS: CLONIDINE HCL 0.1 MG TABLET PO SCH ×2 (08:59→14:24)
[2017-03-11] MEDS: LEVETIRACETAM 500 MG TABLET PO SCH (09:00)
[2017-03-11] MEDS: BUSPIRONE HCL 10 MG TABLET PO SCH (09:00)
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
[2017-03-11] MEDS ORDERED: BENZTROPINE MESYLATE 1 MG TABLET PO SCH (10:00)
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
[2017-03-11] MEDS: OLANZAPINE 5 MG TABLET PO PRN (14:24)
[2017-03-11 14:57] VITALS: BP 118/61
== END 2017-03-11 16:50 | disposition home or self-care (01) ==
LOC: ER 21:45
DX: F31.9 Bipolar disorder, unspecified (principal); F91.1 Conduct disorder, childhood-onset type; F03.91 Unspecified dementia, unspecified severity, with behavioral disturbance; R45.850 Homicidal ideations; Z88.0 Allergy status to penicillin; E78.00 Pure hypercholesterolemia, unspecified; I10 Essential (primary) hypertension; E03.9 Hypothyroidism, unspecified; K21.9 Gastro-esophageal reflux disease without esophagitis
CPT/HCPCS: 93005; 99285; 96372; 36415; 80307 ×4; 85025; 80053; 81001; 80164; 93010; A9270 ×10; J3490; J2060 ×2

== ENCOUNTER 2017-03-13 13:43 | Emergency (ER) | payer MEDICARE ==
--- NOTE | 2017-03-13 14:25 | ER Document Report ---
ED General - General Chief Complaint: Fall Stated Complaint: FALL/GENERAL PAIN Time Seen by Provider: 03/13/17 13:48 Mode of Arrival: Medic Information source: Patient, [facility] Records Notes: 76-year-old female history of Alzheimer's presents from care facility with concerns for spitting episodes. It appears they're requesting a mental health evaluation. Patient has been evaluated by mental health multiple times and has been diagnosed as having symptoms related to her dementia TRAVEL OUTSIDE OF THE [place] IN LAST 30 DAYS: No - HPI Onset: Just prior to arrival Onset/Duration: Sudden Quality of pain: No pain Severity: None Pain Level: Denies Associated symptoms: None Exacerbated by: Denies Relieved by: Denies Similar symptoms previously: Yes Recently seen / treated by doctor: Yes - Related Data Allergies/Adverse Reactions: chlorpromazine HCl [From Thorazine] Allergy (Verified 03/09/17 22:09) codeine Allergy (Verified 03/09/17 22:09) divalproex sodium [From Depakote] Allergy (Verified 03/09/17 22:09) lithium Allergy (Verified 03/09/17 22:09) Penicillins Allergy (Verified 03/09/17 22:09) prochlorperazine [From Compazine] Allergy (Verified 03/09/17 22:09) prochlorperazine edisylate [From Compazine] Allergy (Verified 03/09/17 22:09) prochlorperazine maleate [From Compazine] Allergy (Verified 03/09/17 22:09) quetiapine fumarate [From Seroquel] Allergy (Verified 03/09/17 22:09) trazodone Allergy (Verified 03/09/17 22:09) monistat Allergy (Uncoded 03/30/16 19:53) Past Medical History - Social History Smoking Status: Never Smoker Cigarette use (# per day): No Chew tobacco use (# tins/day): No Smoking Education Provided: No Family History: Reviewed & Not Pertinent - Past Medical History Cardiac Medical History: Reports: Hx Hypercholesterolemia, Hx Hypertension Denies: Hx Coronary Artery Disease Endocrine Medical History: Reports: Hx Hypothyroidism. Denies: Hx Diabetes Mellitus Type 1, Hx Diabetes Mellitus Type 2 Renal/ Medical History: Denies: Hx Peritoneal Dialysis GI Medical History: Reports: Hx Gastroesophageal Reflux Disease Psychiatric Medical History: Reports: Hx Bipolar Disorder, Hx Dementia - Immunizations Immunizations up to date: Yes Hx Diphtheria, Pertussis, Tetanus Vaccination: Yes Review of Systems - Review of Systems Notes: REVIEW OF SYSTEMS: CONSTITUTIONAL : Denies fever, chills, or sweats. Denies recent illness. EENT: Denies eye, ear, throat, or mouth pain or symptoms. Denies nasal or sinus congestion or discharge. Denies throat, tongue, or mouth swelling or difficulty swallowing. CARDIOVASCULAR: Denies chest pain. Denies palpitations or racing or irregular heart beat. Denies ankle edema. RESPIRATORY: Denies cough, cold, or chest congestion. Denies shortness of breath, difficulty breathing, or wheezing. GASTROINTESTINAL: Denies abdominal pain or distention. Denies nausea, vomiting , or diarrhea. Denies blood in vomitus, stools, or per rectum. Denies black, tarry stools. Denies constipation. GENITOURINARY: Denies difficulty urinating, painful urination, burning, frequency, blood in urine, or discharge. FEMALE GENITOURINARY: Denies vaginal bleeding, heavy or abnormal periods, irregular periods. Denies vaginal discharge or odor. MUSCULOSKELETAL: Denies back or neck pain or stiffness. Denies joint pain or swelling. SKIN: Denies rash, lesions or sores. HEMATOLOGIC : Denies easy bruising or bleeding. LYMPHATIC: Denies swollen, enlarged glands. NEUROLOGICAL: Denies confusion or altered mental status. Denies passing out or loss of consciousness. Denies dizziness or lightheadedness. Denies headache. Denies weakness or paralysis or loss of use of either side. Denies problems with gait or speech. Denies sensory loss, numbness, or tingling. Denies seizures. PSYCHIATRIC: Patient is agitated intermittently ALL OTHER SYSTEMS REVIEWED AND NEGATIVE. Dictation was performed using [employer] voice recognition software Course - Re-evaluation Re-evalutation: 03/13/17 14:40 Patient has been evaluated by mental health multiple times, it noted that this is more dementia RELATED WHICH I AGREE. PATIENT WILL BE DISCHARGED BACK TO THE FACILITY AND IS ENCOURAGED THAT THEY FIND HIGHER LEVEL OF CARE IF THEY'RE UNABLE to provide it 03/13/17 14:41 After performing a Medical Screening Examination, I estimate there is LOW risk for INTRACRANIAL HEMORRHAGE, UNSTABLE SPINE FRACTURE, CENTRAL CORD SYNDROME, CAUDA EQUINA, THORACIC AORTIC DISSECTION, PNEUMOTHORAX, PERFORATED BOWEL, RUPTURED ABDOMINAL AORTIC ANEURYSM, ACUTE TENDON RUPTURE, COMPARTMENT SYNDROME, or OPEN FRACTURE, thus I consider the discharge disposition reasonable. Also, there is no evidence or peritonitis, sepsis, or toxicity. I have reevaluated this patient multiple times and no significant life threatening changes are noted. The patient and I have discussed the diagnosis and risks, and we agree with discharging home to follow-up with their primary doctor with the understanding that symptoms and presentations can change. We also discussed returning to the Emergency Department immediately if new or worsening symptoms occur. We have discussed the symptoms which are most concerning (e.g., bloody stool, fever, changing or worsening pain, vomiting) that necessitate immediate return. Discharge - Discharge Clinical Impression: Dementia Qualifiers: Dementia type: unspecified type Dementia behavioral disturbance: with behavioral disturbance Qualified Code(s): F03.91 - Unspecified dementia with behavioral disturbance Condition: Stable Disposition: HOME, SELF-CARE Additional Instructions: Please evaluate for further level of care if you're unable to handle dementia at your facility Return immediately if there are any other concerns
[2017-03-13 15:22] VITALS: BP 132/67
== END 2017-03-13 15:23 | disposition home or self-care (01) ==
LOC: ER 13:43
DX: G30.9 Alzheimer's disease, unspecified (principal); F02.80 Dementia in other diseases classified elsewhere, unspecified severity, without behavioral disturbance, psychotic disturbance, mood disturbance, and anxiety; Z88.6 Allergy status to analgesic agent; E78.00 Pure hypercholesterolemia, unspecified; I10 Essential (primary) hypertension; E03.9 Hypothyroidism, unspecified; K21.9 Gastro-esophageal reflux disease without esophagitis
CPT/HCPCS: 99284

== ENCOUNTER 2017-03-14 07:50 | Emergency (ER) | payer MEDICARE ==
--- NOTE | 2017-03-14 07:53 | ER Document Report ---
ED General - General Stated Complaint: ALTERED MENTAL STATUS Time Seen by Provider: 03/14/17 07:52 Mode of Arrival: Medic Information source: Patient, Emergency Med Personnel, [facility] Records, Outside Facility Records Cannot obtain history due to: Dementia Notes: 76-year-old female history of dementia presents from a care facility where appears she becomes agitated and staff members do not wish to deal with her so they sent her to the emergency department. On EMS as arrival patient is not agitated, she was watched in the emergency department all day yesterday and over the weekend as well, she had been evaluated multiple times by mental health and physicians and is deemed to be chronic dementia TRAVEL OUTSIDE OF THE [place] IN LAST 30 DAYS: No - HPI Onset: Other Onset/Duration: Intermittent Quality of pain: No pain Severity: Mild Pain Level: Denies Associated symptoms: Other Exacerbated by: Denies Relieved by: Denies Similar symptoms previously: Yes Recently seen / treated by doctor: Yes - Related Data Allergies/Adverse Reactions: chlorpromazine HCl [From Thorazine] Allergy (Verified 03/09/17 22:09) codeine Allergy (Verified 03/09/17 22:09) divalproex sodium [From Depakote] Allergy (Verified 03/09/17 22:09) lithium Allergy (Verified 03/09/17 22:09) Penicillins Allergy (Verified 03/09/17 22:09) prochlorperazine [From Compazine] Allergy (Verified 03/09/17 22:09) prochlorperazine edisylate [From Compazine] Allergy (Verified 03/09/17 22:09) prochlorperazine maleate [From Compazine] Allergy (Verified 03/09/17 22:09) quetiapine fumarate [From Seroquel] Allergy (Verified 03/09/17 22:09) trazodone Allergy (Verified 03/09/17 22:09) monistat Allergy (Uncoded 03/30/16 19:53) Past Medical History - Social History Smoking Status: Never Smoker Cigarette use (# per day): No Chew tobacco use (# tins/day): No Smoking Education Provided: No Family History: Reviewed & Not Pertinent - Past Medical History Cardiac Medical History: Reports: Hx Hypercholesterolemia, Hx Hypertension Denies: Hx Coronary Artery Disease Endocrine Medical History: Reports: Hx Hypothyroidism. Denies: Hx Diabetes Mellitus Type 1, Hx Diabetes Mellitus Type 2 Renal/ Medical History: Denies: Hx Peritoneal Dialysis GI Medical History: Reports: Hx Gastroesophageal Reflux Disease Psychiatric Medical History: Reports: Hx Bipolar Disorder, Hx Dementia - Immunizations Immunizations up to date: Yes Hx Diphtheria, Pertussis, Tetanus Vaccination: Yes Review of Systems - Review of Systems Notes: PHYSICAL EXAMINATION: GENERAL: Elderly frail female no acute distress. HEAD: Atraumatic, normocephalic. EYES: Pupils equal round and reactive to light, extraocular movements intact, conjunctiva are normal. ENT: Nares patent, oropharynx clear without exudates. Moist mucous membranes. NECK: Normal range of motion, supple without lymphadenopathy LUNGS: Breath sounds clear to auscultation bilaterally and equal. No wheezes rales or rhonchi. HEART: Regular rate and rhythm without murmurs ABDOMEN: Soft, nontender, nondistended abdomen. No guarding, no rebound. No masses appreciated. Female : deferred Musculoskeletal: Normal range of motion, no pitting or edema. No cyanosis. NEUROLOGICAL: Cranial nerves grossly intact. Normal speech, normal gait. Normal sensory, motor exams PSYCH: Normal mood, normal affect. SKIN: Warm, Dry, normal turgor, no rashes or lesions noted. Course - Re-evaluation Re-evalutation: 03/14/17 07:58 Patient is alert oriented she remembers seeing me yesterday, she has been evaluated multiple times by mental health there is no acute medical condition other than her chronic dementia which would explain her behavior Patient will be discharged back to her facility After performing a Medical Screening Examination, I estimate there is LOW risk for ACUTE CORONARY SYNDROME, RESPIRATORY FAILURE, SEPSIS OR MENINGITIS, thus I consider the discharge disposition reasonable. I have reevaluated this patient multiple times and no significant life threatening changes are noted. The patient and I have discussed the diagnosis and risks, and we agree with discharging home with close follow-up. We also discussed returning to the Emergency Department immediately if new or worsening symptoms occur. We have discussed the symptoms which are most concerning (e.g., changing or worsening pain, trouble swallowing or breathing, neck stiffness, fever) that necessitate immediate return. Discharge - Discharge Clinical Impression: Dementia Qualifiers: Dementia type: unspecified type Dementia behavioral disturbance: with behavioral disturbance Qualified Code(s): F03.91 - Unspecified dementia with behavioral disturbance Condition: Stable Disposition: HOME, SELF-CARE Additional Instructions: Patient has dementia sending her to an emergency department for her dementia is extremely inappropriate with no signs of infectious process or medical reasons otherwise Return immediately if there are any other concerns
[2017-03-14 10:26] LABS: ABSOLUTE EOSINOPHILS # (AUTO) 0.3 10^3/uL (0.0-0.6); ABSOLUTE LYMPHOCYTES (AUTO) 1.7 10^3/uL (0.5-4.7); ABSOLUTE MONOCYTES (AUTO) 0.4 10^3/uL (0.1-1.4); ABSOLUTE NEUT (AUTO) 3.6 10^3/uL (1.7-8.2); BASOPHILS % (AUTO) 0.8 % (0-2); EOSINOPHILS % (AUTO) 5.3 % (0-6); HEMATOCRIT 33.3 % (36.0-47.0); HEMOGLOBIN 11.3 g/dL (12.0-15.5); HGB HCT DIFFERENCE 0.6; LYMPHOCYTES % (AUTO) 27.8 % (13-45); MEAN CORPUSCULAR HEMOGLOBIN 32.3 pg (27.0-33.4); MEAN CORPUSCULAR HGB CONC 33.9 g/dL (32.0-36.0); MEAN CORPUSCULAR VOLUME 96 fl (80-97); MONOCYTES % (AUTO) 7.1 % (3-13); RED BLOOD COUNT 3.48 10^6/uL (3.72-5.28); RED CELL DISTRIBUTION WIDTH 12.5 % (11.5-14.0)
[2017-03-14 10:48] LABS: ALANINE AMINOTRANSFERASE 31 U/L (9-52); ALBUMIN 3.8 g/dL (3.5-5.0); ALKALINE PHOSPHATASE 79 U/L (38-126); ANION GAP 11 (5-19); ASPARTATE AMINO TRANSFERASE 33 U/L (14-36); BILIRUBIN,DIRECT 0.3 mg/dL (0.0-0.4); BILIRUBIN,TOTAL 0.3 mg/dL (0.2-1.3); BLOOD UREA NITROGEN 20 mg/dL (7-20); CALCIUM 9.9 mg/dL (8.4-10.2); CARBON DIOXIDE 26 mmol/L (22-30); CHLORIDE 107 mmol/L (98-107); CREATININE RESULT 0.84 mg/dL (0.52-1.25); GLUCOSE 107 mg/dL (75-110); POTASSIUM 5.1 mmol/L (3.6-5.0); SODIUM 144.4 mmol/L (137-145); TOTAL PROTEIN 7.1 g/dL (6.3-8.2)
[2017-03-14 11:01] LABS: APPEARANCE,URINE CLEAR; BILIRUBIN,URINE NEGATIVE (NEGATIVE); GLUCOSE, URINE NEGATIVE (NEGATIVE); KETONES,URINE NEGATIVE (NEGATIVE); LEUKOCYTE ESTERASE,URINE NEGATIVE (NEGATIVE); NITRITE,URINE NEGATIVE (NEGATIVE); PROTEIN,URINE NEGATIVE (NEGATIVE); URINE SPECIFIC GRAVITY 1.003; UROBILINOGEN,URINE NEGATIVE mg/dL (<2.0)
[2017-03-14 14:19] VITALS: BP 123/58
== END 2017-03-14 14:23 | disposition home or self-care (01) ==
LOC: ER 07:50
DX: F03.91 Unspecified dementia, unspecified severity, with behavioral disturbance (principal); I10 Essential (primary) hypertension; Z88.8 Allergy status to other drugs, medicaments and biological substances; Z88.5 Allergy status to narcotic agent; Z88.0 Allergy status to penicillin; Z88.3 Allergy status to other anti-infective agents
CPT/HCPCS: 36415; 80053; 81001; 85025; 99284